=== PATIENT | male | born 1985 | race Hispanic/Latino ===

== ENCOUNTER 2017-08-31 22:52 | Emergency (ER) | payer SELFPAY ==
[2017-08-31] MEDS ORDERED: Ketorolac Tromethamine 60 MG/2 ML VIAL ONE (23:07)
== END 2017-08-31 23:13 | disposition home or self-care (01) ==
LOC: NAV ERS 22:52
DX: K02.9 Dental caries, unspecified (principal); F17.210 Nicotine dependence, cigarettes, uncomplicated
CPT/HCPCS: 96372; J1885

== ENCOUNTER 2021-04-15 15:42 | Emergency (ER) | payer SELFPAY ==
[2021-04-15] MEDS ORDERED: Ondansetron ODT 4 MG TAB ONE (16:15)
[2021-04-15] MEDS ORDERED: Acetaminophen 500 MG TAB ONE (16:15)
[2021-04-16 07:52] LABS: SARS-CoV-2 PCR by NAA Not Detected (NotDetected)
== END 2021-04-15 16:25 | disposition home or self-care (01) ==
LOC: NAV ERS 15:42
DX: R11.2 Nausea with vomiting, unspecified (principal); R19.7 Diarrhea, unspecified; R51.9 Headache, unspecified; M79.10 Myalgia, unspecified site; Z20.822 Contact with and (suspected) exposure to COVID-19; F17.210 Nicotine dependence, cigarettes, uncomplicated
CPT/HCPCS: 99284; Q0162; U0003; U0005

== ENCOUNTER 2021-06-02 18:53 | Emergency (ER) | payer SELFPAY ==
[2021-06-02 20:47] LABS: Bilirubin Negative (Negative); Blood, Urine Trace (Negative); Glucose, Urine (Dipstick) Negative (Negative); Ketone, Urine Negative (Negative); Leukocyte Trace (Negative); Nitrite Negative (Negative); Protein, Urine (Dipstick) Negative (Neg-Trace); Urobilinogen 0.2 mg/dL (Less than 2); pH, Urine 6.5 (5.0-9.0)
[2021-06-02 20:48] LABS: Clarity Hazy (Clear); Specific Gravity, Urine 1.027 (1.002-1.036)
[2021-06-02 20:50] LABS: Bacteria/HPF Rare-Few HPF (None Seen); RBC/HPF 0-3 HPF (0-3); Squamous Epithelial None Seen HPF (0-3)
[2021-06-02] MEDS ORDERED: Amoxicillin/Potassium Clav 250 mg/5 ml Oral Suspension ONE (21:39)
[2021-06-02] MEDS ORDERED: Azithromycin 250 MG TAB ONE (21:39)
[2021-06-02] MEDS ORDERED: cefTRIAXone\\ROCEPHIN 250 MG VIAL ONE (21:41)
[2021-06-02] MEDS ORDERED: Lidocaine 1% (PF) 30 ML VIAL ONE (21:42)
[2021-06-04 21:31] LABS: Chlam.trachomatis by PCR,Urine DETECTED (NotDetected)
== END 2021-06-02 22:09 | disposition home or self-care (01) ==
LOC: NAV ERS 18:53
DX: N34.1 Nonspecific urethritis (principal); F17.210 Nicotine dependence, cigarettes, uncomplicated
CPT/HCPCS: 81003; 81015; 87491; 87591; 96372; 99283; J0696; J2001